=== PATIENT | female | born 1980 | race Caucasian/White ===

== ENCOUNTER 2016-08-07 14:54 | Emergency (ER) | payer MEDICARE, MEDICAID ==
[~2016-08-07] VITALS: Ht 172.7 cm; Wt 160.7 kg
[~2016-08-07 14:54] MED LIST: AMOX500T2 PO; IBUP-1547 PO; IBUP-1724 PO; NORG1TAB12 PO
--- OUTSIDE RECORDS SUMMARY | 2016-08-07 14:59 | XMS REPORT | Continuity of Care Document ---
Author Author [facility] Organization [facility] Address Unknown Phone Unavailable Support Name Relationship Address Phone CHUYCHANTAL NANSERVANDO NAVA Caregiver [address] [place] [address] Unavailable BALDOMERO COLE MD Caregiver [address] [facility] [place] [address] Unavailable MAMADOURAMAKRISHNA CHEE Next Of Kin [address] [place] [address] Insurance Providers Guarantor Naomy Leung Address [address] [place] [address] Email DENIED/NO TO PT PORTAL Payer [facility] Policy Number [id number] Subscriber's Name Naomy Leung Relationship 18 Self Effective Date 15 Expiration Date 15 Payer Medicare Policy Number [id number] Subscriber's Name Naomy Leung Relationship 18 Self Chief Complaint and Reason for Visit Chief Complaint Toothache Reason for Visit Pain due to dental caries [id number] Problems Past Problems Medical Problem Onset Date Gingivitis, chronic Unknown Pain due to dental caries Unknown Right knee pain Unknown Medications Current Home Medications Medication Dose Units Route Directions Days Qty Instructions Start Date Amoxicillin 500 Mg Tablet 500 Mg Oral Three Times A Day 10 Days [address] rGegory Yi [employer] [facility] [address] [facility] [phone] 01/20/16 Ibuprofen 200 Mg Tablet 800 Mg Oral Every 8 Hours as needed for Pain 11/01/15 Ibuprofen 800 Mg Tablet 800 Mg Oral Every 8 Hours Prn for Pain 10 Days [address] Gregory Yi [employer] [facility] [address] [facility] [phone] 01/20/16 Norgestimate-Ethinyl Estradiol (Sprintec 28 Day Tablet) 1 Tab Tablet 1 Tab Oral Daily 11/01/15 Social History Social History Problem Response Recorded Date/Time Onset Date Status Hx Substance Use No 11/01/2015 3:52pm Not Applicable Not Applicable Hx Alcohol Use No 11/01/2015 3:52pm Not Applicable Not Applicable Hospital Discharge Instructions No hospital discharge instructions. Plan of Care Discharge Date 01/20/16 1:23pm Disposition 01 DISCHARGED HOME, SELF-CARE Condition at Discharge Stable Instructions/Education Provided Tooth Decay Tooth Abscess DI for Dental Pain Prescriptions See Medication Section Referrals BALDOMERO COLE MD Address: [address] [place] [phone] Additional Instructions/Education Take amoxicillin as directed; Use ibuprofen every 8 hours or longer as needed for pain; Dilute salt water rinses, warm salty broths. See dentist in next 10-14 days. Functional Status No functional status results. Allergies, Adverse Reactions, Alerts Allergen Type Severity Reaction Status Last Updated Sulfa (Sulfonamide Antibiotics) Allergy Unknown Active 11/01/15 Prochlorperazine Allergy Unknown Active 11/01/15 Morphine Allergy Severe ANXIETY Active 01/20/16 Immunizations Query Response on File Recorded Date/Time Influenza Vaccine Hx NONE 11/01/15 3:52pm Vital Signs Acute Vital Signs Vital Response Date/Time Temperature (Fahrenheit) 99.2 deg F (96.8 - 99.1) 01/20/2016 12:57pm Temperature (Calculated Celsius) 37.89131 degrees C (36.0 - 37.3) 01/20/2016 12:57pm Pulse Rate (adult) 75 bpm (60 - 100) 01/20/2016 12:57pm Respiratory Rate 28 breaths/min (10 - 20) 01/20/2016 12:57pm O2 Sat by Pulse Oximetry 97 % (90 - 100) 01/20/2016 12:57pm Blood Pressure 152/90 mm Hg 01/20/2016 12:57pm Height (Feet) 5 feet 11/01/2015 3:20pm Height (Inches) 67.50 inches 01/20/2016 12:57pm Weight (Kilograms) 162.200 kg 01/20/2016 12:57pm Body Mass Index (BMI) 55.0 01/20/2016 12:57pm Results No known relevant diagnostic tests, laboratory data and/or discharge summary. Procedures Procedure Status Date Provider(s) X-RAY EXAM OF KNEE 3 Completed 11/01/15 EMERGENCY DEPT VISIT Completed 11/01/15 MRI JNT OF LWR EXTRE W/O DYE Completed 11/09/15 Encounters Encounter Location Arrival/Admit Date Discharge/Depart Date Attending Provider Departed Emergency Room [facility] 01/20/16 12:52pm 01/20/16 1: 23pm NAN BLOCK APRN Registered Clinic [facility] 11/09/15 10:54am BALDOMERO COLE MD Departed Emergency Room [facility] 11/01/15 3:13pm 11/01/15 4: 53pm GREGORY YI MD Recent Diagnosis
[2016-08-07 15:08] VITALS: TEMP 98.5; Ht 172.7 cm; Wt 160.7 kg
--- NOTE | 2016-08-07 15:12 | NUR ---
PROVIDER DR JAVIER AT BEDSIDE
[2016-08-07] MEDS ORDERED: CLIN-89 PO (15:20)
--- NOTE | 2016-08-07 15:21 | ERPDOC ---
Departure Disposition Decision Date: August 07, 2016 Disposition Decision Time: 15:17 Disposition: 01 DISCHARGED HOME, SELF-CARE Impression Impression Impression: Primary Impression: Insect bite Encounter type: initial encounter Qualified Codes: W57.XXXA - Bitten or stung by nonvenomous insect and other nonvenomous arthropods, initial encounter Severity: Mild Condition: Improved Seen By: Physician only Referrals: BALDOMERO COLE MD (Family) 2 Days Patient Instructions: Insect Bite or Sting (ED) Problems/Meds/Labs Reviewed?: Yes Medications reviewed and manag: Yes Follow up care ordered?: Yes Mental Status: Alert, Oriented Scripts Clindamycin HCl (Clindamycin HCl) 150 Mg Capsule 2 CAP PO QID for 10 Days, #80 CAP 0 Refills TAKE WITH A FULL GLASS OF WATER TO AVOID ESOPHAGEAL IRRITATION. Prov: DAVION JAVIER DO 08/07/16 HPI - Skin General General Chief Complaint: Skin Rash/Abscess Stated Complaint: BITE ON ANKLE Time Seen by Provider: 15:17 Source: patient Exam Limitations: no limitations HPI - Skin General Initial Comments 36-year-old female presents to the emergency department with a chief complaint of a insect bites on the medial portion of her right ankle. Patient denies any current pain or discomfort. No other complaints or associated symptoms. Patient noted onset of symptoms a few days ago and symptoms have not progressed. She does not note any exacerbating or remitting factors. No other complaints or associated symptoms. Symptoms have been persistent in nature since onset. Patient does have a history of MRSA in the past. Occurred At: home Onset: Constant Allergies: Coded Allergies: morphine (Verified Allergy, Severe, ANXIETY, 08/07/16) Sulfa (Sulfonamide Antibiotics) (Verified Allergy, Unknown, 08/07/16) prochlorperazine (Verified Allergy, Unknown, 08/07/16) Past History Patient Medical History Problem List Updates: MRSA Patient Surgical History I & D for MRSA Past Medical History Pt denies signifigant PMH Surgical History Joint: other Family History Family History: Negative Social History Smoking Status: Former smoker # of Years: 8 Second Hand Exposure: No Quit Date: Mar 19, 2012 Substance Use Type: does not use Alcohol Intake: none Review of Systems Constitutional Constitutional: DENIES: chills, fever Eyes General: DENIES: erythema, exudate Lids/Accessories: DENIES: erythema, swelling Vision: DENIES: acuity, blurring ENMT Ears: DENIES: drainage, erythema Hearing: DENIES: hearing loss Balance: DENIES: ataxia, falling to one side Sinuses: DENIES: congestion, pain Nose: DENIES: nosebleeds, pain Mouth/Throat: DENIES: painful swallowing, sore throat Teeth: DENIES: pain Jaw: DENIES: pain Cardiovascular Cardiac: DENIES: chest pain, dyspnea on exertion Rhythm/Rate: DENIES: irregular beat, palpitations Vascular: DENIES: pedal edema, unilateral swelling Pulmonary Respiratory: DENIES: cough, dyspnea, pleuritic chest pain, sputum GI Upper Abdomen: DENIES: nausea, pain, vomiting Lower Abdomen: DENIES: diarrhea, pain General: DENIES: burning, dysuria, frequency, urgency Musculoskeletal General: DENIES: joint pain, pain, tenderness Integumentary Skin: DENIES: itching, rash Neurological General: DENIES: headache, numbness, weakness Psychiatric Psychiatric: DENIES: emotional instability, suicidal ideation/attempt Endocrine Endocrine: DENIES: polydipsia, polyphagia Hematologic/Lymphatic Hematologic/Lymphatic: DENIES: frequent nosebleeds, lymphadenopathy Allergic/Immunological Allergic/Immunoligical: DENIES: allergic reactions, hives Physical Exam General General Nourishment: well nourished, well developed, appears stated age, no acute distress, adult General Body Habitus: well groomed Vitals and Pain First Documented Vital Signs Date Time Temp Pulse Resp B/P Pulse Ox O2 Delivery O2 Flow Rate FiO2 08/07/16 15:08 98.5 76 19 175/99 94 Room Air Weight: Kilograms: 160.700 Height (feet): 5 Height (inches): 8.00 Triage Pain Scale: RN VS reviewed by Provider: Yes Normal Exams: Head: Normocephalic w/o trauma Eyes: Pupils are PERRLA w/ EOMI, No scleral icterus, irritation, or foreign bodies noted ENMT: No facial trauma, nasal exudates, pharyngeal erythema, or exudates are noted Neck: Full range of motion, without adenopathy, JVD, bruits or thyromegaly Chest/Resp: Clear all pro, with good airflow, and symmetry bilaterally CV: Regular rate and rhythm, without murmur or gallop, Pulses 2+ all extremities, capillary refill, <2 seconds all ext., no pedal edema noted Abdomen: Bowel sounds positive, soft, non-tender, non-distended, no hepatosplenomegaly, masses or bruits noted Lymphatic: No lymphadenopathy, or lymphedema noted Musculoskeletal: No tenderness, or deformity noted, good range of motion, all extremities Integumentary: No rashes, hives, or bruising noted, hair and nails, without abnormality Neurologic: Patient is alert, and oriented, cranial nerves, motor/sensory/ cerebellar, exams w/o gross deficits, to observation Psychiatric: Patient exhibits, appropriate attention, emotion and affect Integumentary (brief) Comments 1 cm circular area of erythema without cellulitis, lymphangitis or abscess noted to the medial portion of the patient's right lower extremity just above the ankle. Pulses intact. Sensation intact. Capillary refill less than 2. Full range of motion. No tenderness. No edema. Differential Diagnoses Considering: Abrasion, Abscess, Bite, Cellulitis Progress Progress Progress Patient's tetanus status is current. Patient is provided with prescription for clindamycin 300 mg by mouth 4 times a day 10 days. She is discharged home in improved condition. She is to follow up as instructed. She is to return to the emergency Department if her condition worsens or changes in any manner. Patient is agreement with the current plan of management. She is to follow up as instructed. DAVION JAVIER DO August 07, 2016 15:21
[2016-08-07 15:34] VITALS: BP 135/86; PULSE 82; RESP 18; O2SAT 94
[2016-08-07] MEDS ORDERED: HYDR-4181 PO (16:25)
[2016-08-07] MEDS ORDERED: QUET100T PO (16:25)
== END 2016-08-07 15:34 | disposition home or self-care (01) ==
LOC: ED 14:54
DX: S90.561A Insect bite (nonvenomous), right ankle, initial encounter (principal); W57.XXXA Bitten or stung by nonvenomous insect and other nonvenomous arthropods, initial encounter; Y93.9 Activity, unspecified; Y92.009 Unspecified place in unspecified non-institutional (private) residence as the place of occurrence of the external cause; Y99.8 Other external cause status